=== PATIENT | male | born 1945 | race Caucasian/White ===

== ENCOUNTER 2017-03-04 10:26 | Emergency (ER) | payer MEDICARE ==
[~2017-03-04] VITALS: Ht 154.9 cm; Wt 65.0 kg
[~2017-03-04 10:26] MED LIST: ASA LO-DOSE81 MG OR; C 250 PO; CEPHALEXIN500 M1 OR; CLARITIN10 MG OR; DAILY MULTI OR; DAILY MULTIPLE VITA1 PO; EQ ASPIRIN81 M1 OR; ESCITALOPRAM OX10 MG PO; FISH OIL1000 MG PO; LISINOPRIL5 MG PO; NAPROSYN500 MG OR; NEXIUM40 M1 PO; OMEGA PO; PLAVIX75 MG OR; PRAVASTATIN20 MG PO; PROAIR HFA IN; VITAMIN C100 MG OR; [UNRECOGNIZED DRUG - REMARK]
[2017-03-04] MEDS ORDERED: PERCOCET 5/325M1 TAB PO (12:16)
[2017-03-04 12:57] VITALS: BP 137/82
== END 2017-03-04 12:57 | disposition home or self-care (01) ==
LOC: ED 10:26
PROC: 2W3DX1Z Immobilization of Left Lower Arm using Splint (ICD-10-PCS; principal; 2017-03-04)
DX: S62.316A Displaced fracture of base of fifth metacarpal bone, right hand, initial encounter for closed fracture (principal); R22.31 Localized swelling, mass and lump, right upper limb; W01.0XXA Fall on same level from slipping, tripping and stumbling without subsequent striking against object, initial encounter; Y93.01 Activity, walking, marching and hiking; Y92.009 Unspecified place in unspecified non-institutional (private) residence as the place of occurrence of the external cause

== ENCOUNTER 2018-08-13 08:29 | Inpatient (IN) | payer MEDICARE ==
[~2018-08-13] VITALS: Ht 154.9 cm; Wt 76.7 kg
[2018-08-13] VITALS (58 sets, daily range): BP systolic 83–152; BP diastolic 52–85
[~2018-08-13 08:29] MED LIST changes: +PERCOCET 5/325M1 TAB PO
[2018-08-13 10:13] LABS: HEMATOCRIT 46.5 % (39.0-50.0); HEMOGLOBIN 15.2 g/dl (14.0-18.0); IMMATURE GRANULOCYTES 0.6 % (0.0-5.0); MEAN CELL VOLUME 91.7 fL CALC (80.0-100.0); MEAN CORPUSCULAR HGB CONC 32.7 g/L CALC (32.0-36.0); NEUT# 7.39 thou/uL (1.82-7.42); RED BLOOD COUNT 5.07 mill/uL (4.70-6.10); RED CELL DISTRI WIDTH 12.4 % (11.5-15.5)
[2018-08-13 10:34] LABS: ALBUMIN 4.2 g/dL (3.2-5.0); BILIRUBIN, TOTAL 0.6 mg/dL (0.0-1.4); CREATININE 1.7 mg/dL (0.7-1.3); POTASSIUM 4.4 mmol/l (3.5-5.1); TOTAL PROTEIN 6.6 g/dL (6.3-8.2)
[2018-08-13 18:28] LABS: ANION GAP 13 (6-22 (CALC)); BUN 24 mg/dL (8-23); BUN/CREATININE RATIO 23 (12-20 (CALC)); CARBON DIOXIDE 19 mmol/l (22-30); CHLORIDE 112 mmol/l (95-108); CREATININE 1.1 mg/dL (0.7-1.3); GFR > 60 ML/MIN (>=60 (CALC)); GFR FOR AFR.AMER. > 60 ML/MIN (>=60 (CALC)); POTASSIUM 4.1 mmol/l (3.5-5.1); SODIUM 139 mmol/l (137-146)
[2018-08-13 18:47] LABS: HEMATOCRIT 41.8 % (39.0-50.0); HEMOGLOBIN 13.6 g/dl (14.0-18.0); IMMATURE GRANULOCYTES 0.4 % (0.0-5.0); MEAN CELL VOLUME 94.4 fL CALC (80.0-100.0); MEAN CORPUSCULAR HGB 30.7 pG CALC (26.0-32.0); MEAN CORPUSCULAR HGB CONC 32.5 g/L CALC (32.0-36.0); NEUT# 7.51 thou/uL (1.82-7.42); RED BLOOD COUNT 4.43 mill/uL (4.70-6.10); RED CELL DISTRI WIDTH 12.6 % (11.5-15.5)
[2018-08-14] VITALS (36 sets, daily range): BP systolic 85–112; BP diastolic 45–82
[2018-08-14] MEDS ORDERED: INDERAL 20MG TA20 MG PO (12:43)
[2018-08-14] MEDS ORDERED: PRAVASTATIN20 MG PO (12:44)
[2018-08-14] MEDS ORDERED: ESCITALOPRAM OX10 MG PO (12:44)
[2018-08-14] MEDS ORDERED: PRILOSEC20 MG/CAP PO (12:45)
[2018-08-14] MEDS ORDERED: LISINOPRIL5 MG PO (12:46)
[2018-08-14] MEDS ORDERED: ASPIRIN 8181 MG PO (15:44)
[2018-08-14] MEDS ORDERED: VENTOLIN HFA IN (15:45)
[2018-08-14] MEDS ORDERED: BUPROPION HCL150 M1 PO (15:46)
[2018-08-15] VITALS (38 sets, daily range): BP systolic 90–128; BP diastolic 52–71
[2018-08-15 05:02] LABS: HEMATOCRIT 36.5 % (39.0-50.0); HEMOGLOBIN 12.2 g/dl (14.0-18.0); IMMATURE GRANULOCYTES 0.5 % (0.0-5.0); MEAN CORPUSCULAR HGB 30.4 pG CALC (26.0-32.0); MEAN CORPUSCULAR HGB CONC 33.4 g/L CALC (32.0-36.0); NEUT# 8.04 thou/uL (1.82-7.42); RED BLOOD COUNT 4.01 mill/uL (4.70-6.10); RED CELL DISTRI WIDTH 13.1 % (11.5-15.5)
[2018-08-15 05:27] LABS: ALKALINE PHOSPHATASE 40 u/l (38-126); AMYLASE 50 u/l (30-110); ANION GAP 9 (6-22 (CALC)); BILIRUBIN, TOTAL 0.3 mg/dL (0.0-1.4); BUN 21 mg/dL (8-23); BUN/CREATININE RATIO 24 (12-20 (CALC)); CARBON DIOXIDE 20 mmol/l (22-30); CHLORIDE 114 mmol/l (95-108); CREATININE 0.9 mg/dL (0.7-1.3); GFR > 60 ML/MIN (>=60 (CALC)); GFR FOR AFR.AMER. > 60 ML/MIN (>=60 (CALC)); LIPASE 113 u/l (23-300); POTASSIUM 3.5 mmol/l (3.5-5.1); SGOT/AST 11 u/l (19-48); SODIUM 139 mmol/l (137-146)
[2018-08-15 05:29] LABS: ALBUMIN 2.5 g/dL (3.2-5.0); TOTAL PROTEIN 4.5 g/dL (6.3-8.2)
[2018-08-15] MEDS ORDERED: FISH,FLAX,BORAGE OIL (16:02)
[2018-08-16] VITALS (59 sets, daily range): BP systolic 79–144; BP diastolic 47–71
[2018-08-16 05:56] LABS: HEMATOCRIT 37.2 % (39.0-50.0); HEMOGLOBIN 12.2 g/dl (14.0-18.0); IMMATURE GRANULOCYTES 1.2 % (0.0-5.0); MEAN CELL VOLUME 91.9 fL CALC (80.0-100.0); MEAN CORPUSCULAR HGB 30.1 pG CALC (26.0-32.0); MEAN CORPUSCULAR HGB CONC 32.8 g/L CALC (32.0-36.0); NEUT# 9.44 thou/uL (1.82-7.42); RED BLOOD COUNT 4.05 mill/uL (4.70-6.10); RED CELL DISTRI WIDTH 13.2 % (11.5-15.5)
[2018-08-16 06:14] LABS: ALBUMIN 2.6 g/dL (3.2-5.0); ALKALINE PHOSPHATASE 49 u/l (38-126); ANION GAP 10 (6-22 (CALC)); BILIRUBIN, TOTAL 0.2 mg/dL (0.0-1.4); BUN 24 mg/dL (8-23); BUN/CREATININE RATIO 24 (12-20 (CALC)); CARBON DIOXIDE 20 mmol/l (22-30); CHLORIDE 112 mmol/l (95-108); GFR > 60 ML/MIN (>=60 (CALC)); GFR FOR AFR.AMER. > 60 ML/MIN (>=60 (CALC)); MAGNESIUM 2.1 mg/dL (1.6-2.3); POTASSIUM 3.3 mmol/l (3.5-5.1); SGOT/AST 10 u/l (19-48); SODIUM 139 mmol/l (137-146); TOTAL PROTEIN 4.6 g/dL (6.3-8.2)
[2018-08-17] VITALS (55 sets, daily range): BP systolic 87–186; BP diastolic 50–104
[2018-08-17 05:22] LABS: HEMATOCRIT 37.2 % (39.0-50.0); HEMOGLOBIN 12.3 g/dl (14.0-18.0); IMMATURE GRANULOCYTES 1.7 % (0.0-5.0); MEAN CELL VOLUME 92.1 fL CALC (80.0-100.0); MEAN CORPUSCULAR HGB 30.4 pG CALC (26.0-32.0); MEAN CORPUSCULAR HGB CONC 33.1 g/L CALC (32.0-36.0); NEUT# 10.14 thou/uL (1.82-7.42); RED BLOOD COUNT 4.04 mill/uL (4.70-6.10); RED CELL DISTRI WIDTH 13.3 % (11.5-15.5)
[2018-08-17 05:39] LABS: ALBUMIN 2.7 g/dL (3.2-5.0); ALKALINE PHOSPHATASE 44 u/l (38-126); BUN 28 mg/dL (8-23); BUN/CREATININE RATIO 27 (12-20 (CALC)); CARBON DIOXIDE 22 mmol/l (22-30); CHLORIDE 111 mmol/l (95-108); GFR > 60 ML/MIN (>=60 (CALC)); GFR FOR AFR.AMER. > 60 ML/MIN (>=60 (CALC)); MAGNESIUM 2.3 mg/dL (1.6-2.3); SODIUM 139 mmol/l (137-146); TOTAL PROTEIN 4.6 g/dL (6.3-8.2)
[2018-08-17 05:44] LABS: ANION GAP 10 (6-22 (CALC)); BILIRUBIN, TOTAL 0.3 mg/dL (0.0-1.4)
[2018-08-17 05:45] LABS: POTASSIUM 4.1 mmol/l (3.5-5.1); SGOT/AST 19 u/l (19-48)
[2018-08-18] VITALS (15 sets, daily range): BP systolic 94–164; BP diastolic 56–98
[2018-08-18 05:25] LABS: HEMATOCRIT 40.9 % (39.0-50.0); HEMOGLOBIN 13.6 g/dl (14.0-18.0); IMMATURE GRANULOCYTES 1.8 % (0.0-5.0); MEAN CELL VOLUME 91.1 fL CALC (80.0-100.0); MEAN CORPUSCULAR HGB 30.3 pG CALC (26.0-32.0); MEAN CORPUSCULAR HGB CONC 33.3 g/L CALC (32.0-36.0); NEUT# 11.59 thou/uL (1.82-7.42); RED BLOOD COUNT 4.49 mill/uL (4.70-6.10); RED CELL DISTRI WIDTH 13.5 % (11.5-15.5)
[2018-08-18 05:47] LABS: ALBUMIN 2.8 g/dL (3.2-5.0); ALKALINE PHOSPHATASE 49 u/l (38-126); ANION GAP 10 (6-22 (CALC)); BILIRUBIN, TOTAL 0.4 mg/dL (0.0-1.4); BUN 36 mg/dL (8-23); BUN/CREATININE RATIO 35 (12-20 (CALC)); CARBON DIOXIDE 24 mmol/l (22-30); CHLORIDE 111 mmol/l (95-108); GFR > 60 ML/MIN (>=60 (CALC)); GFR FOR AFR.AMER. > 60 ML/MIN (>=60 (CALC)); MAGNESIUM 2.7 mg/dL (1.6-2.3); POTASSIUM 4.1 mmol/l (3.5-5.1); SODIUM 142 mmol/l (137-146)
[2018-08-18 05:54] LABS: SGOT/AST 43 u/l (19-48)
[2018-08-19] VITALS (12 sets, daily range): BP systolic 112–169; BP diastolic 59–88
[2018-08-19 05:04] LABS: HEMATOCRIT 35.5 % (39.0-50.0); HEMOGLOBIN 11.7 g/dl (14.0-18.0); MEAN CELL VOLUME 92.9 fL CALC (80.0-100.0); MEAN CORPUSCULAR HGB 30.6 pG CALC (26.0-32.0); NEUT# 8.8 thou/uL (1.82-7.42); RED BLOOD COUNT 3.82 mill/uL (4.70-6.10); RED CELL DISTRI WIDTH 13.4 % (11.5-15.5)
[2018-08-19 06:34] LABS: ALBUMIN 2.6 g/dL (3.2-5.0); ALKALINE PHOSPHATASE 42 u/l (38-126); ANION GAP 8 (6-22 (CALC)); BILIRUBIN, TOTAL 0.5 mg/dL (0.0-1.4); BUN 41 mg/dL (8-23); BUN/CREATININE RATIO 41 (12-20 (CALC)); CARBON DIOXIDE 26 mmol/l (22-30); CHLORIDE 112 mmol/l (95-108); GFR > 60 ML/MIN (>=60 (CALC)); GFR FOR AFR.AMER. > 60 ML/MIN (>=60 (CALC)); MAGNESIUM 2.8 mg/dL (1.6-2.3); POTASSIUM 4.1 mmol/l (3.5-5.1); SGOT/AST 61 u/l (19-48); SODIUM 142 mmol/l (137-146); TOTAL PROTEIN 4.6 g/dL (6.3-8.2)
[2018-08-20] VITALS (11 sets, daily range): BP systolic 121–160; BP diastolic 62–85
[2018-08-20 05:06] LABS: HEMATOCRIT 36.7 % (39.0-50.0); HEMOGLOBIN 11.9 g/dl (14.0-18.0); IMMATURE GRANULOCYTES 2.4 % (0.0-5.0); MEAN CELL VOLUME 92.4 fL CALC (80.0-100.0); MEAN CORPUSCULAR HGB CONC 32.4 g/L CALC (32.0-36.0); NEUT# 8.36 thou/uL (1.82-7.42); RED BLOOD COUNT 3.97 mill/uL (4.70-6.10); RED CELL DISTRI WIDTH 13.1 % (11.5-15.5)
[2018-08-20 06:13] LABS: ALBUMIN 2.9 g/dL (3.2-5.0); ALKALINE PHOSPHATASE 39 u/l (38-126); ANION GAP 10 (6-22 (CALC)); BILIRUBIN, TOTAL 0.7 mg/dL (0.0-1.4); BUN 41 mg/dL (8-23); BUN/CREATININE RATIO 43 (12-20 (CALC)); CARBON DIOXIDE 28 mmol/l (22-30); CHLORIDE 111 mmol/l (95-108); CREATININE 0.9 mg/dL (0.7-1.3); GFR > 60 ML/MIN (>=60 (CALC)); GFR FOR AFR.AMER. > 60 ML/MIN (>=60 (CALC)); MAGNESIUM 2.7 mg/dL (1.6-2.3); POTASSIUM 4.3 mmol/l (3.5-5.1); SGOT/AST 64 u/l (19-48); SODIUM 144 mmol/l (137-146)
[2018-08-21 04:15] VITALS: BP 132/76
[2018-08-21 05:25] LABS: HEMATOCRIT 35.9 % (39.0-50.0); HEMOGLOBIN 11.8 g/dl (14.0-18.0); IMMATURE GRANULOCYTES 2.3 % (0.0-5.0); MEAN CELL VOLUME 93.2 fL CALC (80.0-100.0); MEAN CORPUSCULAR HGB 30.6 pG CALC (26.0-32.0); MEAN CORPUSCULAR HGB CONC 32.9 g/L CALC (32.0-36.0); NEUT# 8.57 thou/uL (1.82-7.42); RED BLOOD COUNT 3.85 mill/uL (4.70-6.10)
[2018-08-21 05:46] LABS: ALBUMIN 2.7 g/dL (3.2-5.0); ALKALINE PHOSPHATASE 39 u/l (38-126); ANION GAP 9 (6-22 (CALC)); BILIRUBIN, TOTAL 0.7 mg/dL (0.0-1.4); BUN 38 mg/dL (8-23); BUN/CREATININE RATIO 45 (12-20 (CALC)); CARBON DIOXIDE 29 mmol/l (22-30); CHLORIDE 110 mmol/l (95-108); CREATININE 0.9 mg/dL (0.7-1.3); GFR > 60 ML/MIN (>=60 (CALC)); GFR FOR AFR.AMER. > 60 ML/MIN (>=60 (CALC)); MAGNESIUM 2.5 mg/dL (1.6-2.3); POTASSIUM 4.2 mmol/l (3.5-5.1); SGOT/AST 36 u/l (19-48); SODIUM 144 mmol/l (137-146); TOTAL PROTEIN 4.8 g/dL (6.3-8.2)
[2018-08-21 07:40] VITALS: BP 152/72
[2018-08-21 15:50] VITALS: BP 124/68
[2018-08-21 19:00] VITALS: BP 127/69
[2018-08-21 21:47] LABS: URINE BILIRUBIN - DIPSTICK NEGATIVE (NEGATIVE); URINE BLOOD DIPSTICK LARGE (NEGATIVE); URINE COLOR YELLOW; URINE GLUCOSE - DIPSTICK NEGATIVE (NEGATIVE); URINE KETONE NEGATIVE (NEGATIVE); URINE LEUK ESTERASE NEGATIVE (Negative); URINE NITRITE - DIPSTICK NEGATIVE (Negative); URINE PH 5.5 (4.5-8.0); URINE PROTEIN - DIPSTICK TRACE mg/dL (NEG-TRACE); URINE SPECIFIC GRAVITY >=1.030; URINE UROBILINOGEN - DIPSTICK 0.2 E.U./dL (0.2)
[2018-08-21 21:49] LABS: URINE CLARITY SL CLOUDY
[2018-08-21 21:53] LABS: URINE RBC 50-100 RBC/hpf (0-5)
[2018-08-21 21:54] LABS: URINE WBC 0-2 WBC/hpf (0-5)
[2018-08-21 23:50] VITALS: BP 122/69
[2018-08-22 04:08] VITALS: BP 134/63
[2018-08-22 07:30] VITALS: BP 140/70
[2018-08-22 11:10] VITALS: BP 115/61
[2018-08-22 15:05] VITALS: BP 119/70
[2018-08-22 19:00] VITALS: BP 127/78
[2018-08-23] VITALS: BP 136/80
[2018-08-23 04:15] VITALS: BP 114/68
[2018-08-23 08:48] VITALS: BP 114/61
[2018-08-23 10:58] VITALS: BP 111/70
[2018-08-23] MEDS ORDERED: IPRATROPIU0.5 MG/3 M IN (14:10)
[2018-08-23] MEDS ORDERED: APRESOLINE25 MG/TAB PO (14:10)
[2018-08-23] MEDS ORDERED: AMLODIPINE BESYL5 MG PO (14:11)
[2018-08-23] MEDS ORDERED: LEVAQUIN500 MG PO (14:12)
[2018-08-23 15:51] VITALS: BP 91/52
[2018-08-23 19:32] VITALS: BP 95/54
== END 2018-08-23 19:46 | DRG 915 ==
LOC: ED 08:29 → ED-I 11:32 → ED 11:50 → ICU 11:51 → MS2 08-20 13:09
PROVIDERS: Emergency Medicine; Internal Medicine Nephrology; ADMIT Internal Medicine; ATTEND Internal Medicine
PROC: 0BH17EZ Insertion of Endotracheal Airway into Trachea, Via Natural or Artificial Opening (ICD-10-PCS; principal; 2018-08-13)
PROC: 5A1955Z Respiratory Ventilation, Greater than 96 Consecutive Hours (ICD-10-PCS; 2018-08-13)
PROC: 0T9B70Z Drainage of Bladder with Drainage Device, Via Natural or Artificial Opening (ICD-10-PCS; 2018-08-13)
PROC: 02HV33Z Insertion of Infusion Device into Superior Vena Cava, Percutaneous Approach (ICD-10-PCS; 2018-08-14)
DX: T78.3XXA Angioneurotic edema, initial encounter (principal); G92 Toxic encephalopathy; J96.01 Acute respiratory failure with hypoxia; J69.0 Pneumonitis due to inhalation of food and vomit; N17.9 Acute kidney failure, unspecified; E46 Unspecified protein-calorie malnutrition; T46.4X5A Adverse effect of angiotensin-converting-enzyme inhibitors, initial encounter; J44.9 Chronic obstructive pulmonary disease, unspecified; I25.10 Atherosclerotic heart disease of native coronary artery without angina pectoris; I10 Essential (primary) hypertension; I95.9 Hypotension, unspecified; E78.5 Hyperlipidemia, unspecified; R73.9 Hyperglycemia, unspecified; F32.9 Major depressive disorder, single episode, unspecified; F41.9 Anxiety disorder, unspecified; Z95.5 Presence of coronary angioplasty implant and graft; Z68.20 Body mass index [BMI] 20.0-20.9, adult; Z78.1 Physical restraint status; T38.0X5A Adverse effect of glucocorticoids and synthetic analogues, initial encounter

== ENCOUNTER 2018-10-08 16:20 | Inpatient (IN) | payer MEDICARE ==
[~2018-10-08] VITALS: Ht 154.9 cm; Wt 62.2 kg
[~2018-10-08 16:20] MED LIST changes: +AMLODIPINE BESYL5 MG PO; +APRESOLINE25 MG/TAB PO; +ASPIRIN 8181 MG PO; +BUPROPION HCL150 M1 PO; +FISH,FLAX,BORAGE OIL; +INDERAL 20MG TA20 MG PO; +IPRATROPIU0.5 MG/3 M IN; +LEVAQUIN500 MG PO; +PRILOSEC20 MG/CAP PO; +VENTOLIN HFA IN
--- NOTE | 2018-10-08 16:20 | NUR ---
PT TO ROOM VIA EMS STRETCHER.
--- NOTE | 2018-10-08 16:35 | NUR ---
AT BEDSIDE AND REPORTS INCREASING CONFUSION AND TREAMORS. PER PT WAS INTUBATED FOR ANGIO EDEMA APPROX 2 MONTHS PRIOR AND WHEN HE WAS EXTUBATED HE WAS CONFUSED AND HAVING LEFT LOWER EXTREMITY WEAKNESS. HE HAS BEEN SEEING A PHYSICAL THERAPIST SINCE DISCHARGE FROM REHAB ON 09/15.
[2018-10-08 16:59] LABS: HEMATOCRIT 33.6 % (39.0-50.0); HEMOGLOBIN 10.9 g/dl (14.0-18.0); IMMATURE GRANULOCYTES 1.3 % (0.0-5.0); MEAN CELL VOLUME 94.1 fL CALC (80.0-100.0); MEAN CORPUSCULAR HGB 30.5 pG CALC (26.0-32.0); MEAN CORPUSCULAR HGB CONC 32.4 g/L CALC (32.0-36.0); NEUT# 3.82 thou/uL (1.82-7.42); RED BLOOD COUNT 3.57 mill/uL (4.70-6.10)
[2018-10-08 17:10] LABS: ANION GAP 10 (6-22 (CALC)); BUN 25 mg/dL (8-23); BUN/CREATININE RATIO 24 (12-20 (CALC)); CARBON DIOXIDE 30 mmol/l (22-30); CHLORIDE 105 mmol/l (95-108); GFR > 60 ML/MIN (>=60 (CALC)); GFR FOR AFR.AMER. > 60 ML/MIN (>=60 (CALC)); SGOT/AST 16 u/l (19-48); SODIUM 141 mmol/l (137-146); TOTAL PROTEIN 5.4 g/dL (6.3-8.2)
[2018-10-08 17:13] LABS: ALBUMIN 3.3 g/dL (3.2-5.0); ALKALINE PHOSPHATASE 60 u/l (38-126); BILIRUBIN, TOTAL 0.3 mg/dL (0.0-1.4)
--- NOTE | 2018-10-08 17:25 | NUR ---
PATIENT RESTING ON STRETCHER WITH EYES CLOSED, RESPONDS TO VERBAL AND TACTILE STIMULI. NOTED TO BE DROWSY ORIENTED TO SELF AND PLACE, GARBLED SPEECH NOTED. REPORTS PATIENT LAST KNOWN WELL 10/06/18 AT 1800.
[2018-10-08] MEDS ORDERED: PRIMIDONE50 MG PO (17:30)
[2018-10-08] MEDS ORDERED: OMEPRAZOLE10 MG PO (17:32)
[2018-10-08] MEDS ORDERED: FUROSEMIDE20 MG PO (17:33)
[2018-10-08] MEDS ORDERED: TAMSULOSIN HCL0.4 MG PO (17:33)
[2018-10-08] MEDS ORDERED: POT CHLORIDE10 ME5 PO (17:34)
[2018-10-08] MEDS ORDERED: AMLODIPINE5 MG PO (17:35)
--- NOTE | 2018-10-08 17:38 | NUR ---
MEDICATIONS REVIEWED WITH PATIENT'S . HOME MEDS BROUGHT IN FROM HOME.
--- NOTE | 2018-10-08 18:05 | NUR ---
PATIENT RETURNS FROM CT IN STABLE CONDITION. CONTINUES TO BE DROWSY.
--- NOTE | 2018-10-08 18:35 | NUR ---
AT BEDSIDE TO DISCUSS RESULTS AND PLAN OF CARE.
--- NOTE | 2018-10-08 19:00 | NUR ---
REPORT GIVEN TO MIRANDA HANSON.
--- NOTE | 2018-10-08 19:17 | NUR ---
ATTEMPT MADE TO CALL REPORT, SPOKE TO MIRANDA CASTELAN. WILL HAVE NURSE CALL BACK FOR REPORT.
--- NOTE | 2018-10-08 19:22 | NUR ---
REPORT CALLED TO DANA ORDONEZ RN. INFORMED OF URINE SAMPLE COLLECTION PENDING. VERBAL UNDERSTANDING.
--- NOTE | 2018-10-08 19:25 | NUR ---
TO FLOOR WITH O2/POCKET MONITOR. PHONE GIVEN TO . SLIPPERS AND SHIRT IN MARKED BAG TO FLOOR WITH PT. PT TRANSFERRED TO BED WITH FLOOR STAFF.
[2018-10-08 19:35] VITALS: BP 131/72
--- NOTE | 2018-10-08 19:50 | NUR ---
RECEIVED REPORT FROM ER NURSE RAUL, PATIENT ON 02 AT 2LPM, TRANSPORTED VIA BED, ACCOMPANIED BY , PATIENT LETHARGIC, BUT WAS ABLE TO ANSWER NAME AND LOCATION, ORIENTED TO ROOM AND CALL LIGHT SYSTEM.
[2018-10-09] VITALS (9 sets, daily range): BP systolic 88–125; BP diastolic 47–72
--- NOTE | 2018-10-09 01:00 | NUR ---
PATIENT APPEARS TO BE SLEEPING WITH EYES CLOSED EVEN UNLABORED BREATHING CALL LIGHT AT REACH.
[2018-10-09 01:32] LABS: URINE BILIRUBIN - DIPSTICK NEGATIVE (NEGATIVE); URINE BLOOD DIPSTICK NEGATIVE (NEGATIVE); URINE COLOR YELLOW; URINE GLUCOSE - DIPSTICK NEGATIVE (NEGATIVE); URINE KETONE NEGATIVE (NEGATIVE); URINE LEUK ESTERASE NEGATIVE (NEGATIVE); URINE NITRITE - DIPSTICK NEGATIVE (Negative); URINE PROTEIN - DIPSTICK NEGATIVE (NEG-TRACE); URINE UROBILINOGEN - DIPSTICK 0.2 E.U./dL (0.2)
--- NOTE | 2018-10-09 06:43 | NUR ---
PATIENT ALERT AND ORIENTED TO NAME AND PLACE ONLY, ABLE TO MAKE NEEDS KNOWN, DENIES PAIN OR DISCOMFORTS AT THIS TIME, PATIENT TRYING TO VOID, UNABLE TO PEE AT THIS TIME, BLADDER SCAN DONE 282 ML, PATIENT REQUESTED COFFEE STATING IT HELPS HIM VOID.
--- NOTE | 2018-10-09 07:20 | NUR ---
RECEIVED REPORT FROM MIRANDA IQBAL. PT SITTING IN RECLINER CHAIR AT BEDSIDE.
--- NOTE | 2018-10-09 07:30 | NUR ---
Assessment complete at this time. Pt alert and oriented x3, discussing is anniversary this past sat. Denies any needs or complaints. See shift review for complete assessment. Discussed plan of care. New IV started in L hand. tolerated well.
--- NOTE | 2018-10-09 08:48 | NUR ---
pt medicated with scheduled meds. denies any needs.
--- NOTE | 2018-10-09 10:10 | NUR ---
PT UP TO VOID AT SIDE OF BED, EXTREMELY UNSTEADY GAIT/BALANCE. DR LERMA NOTIFIED, RECEIVED ORDER FOR PHYSIAL THERAPY CONSULT.
--- NOTE | 2018-10-09 11:47 | NUR ---
DR LERMA IN TO SEE PT. NEW ORDERS RECEIVED.
--- NOTE | 2018-10-09 11:50 | NUR ---
pt at bedside. pt had large bm, small void.
--- NOTE | 2018-10-09 12:25 | NUR ---
pt up to bsc, another large BM. Pt gait very unsteady, pushes back when standing in upright position.
--- NOTE | 2018-10-09 13:42 | NUR ---
PT INTERMITTENTLY CONFUSED, STATING HE IS DREAMING, AT TIMES BELIEVES HE IS AT HOME. HAS VOIDED IN HIS WATER PITCHER. PT ATTEMPTING TO GET OUT OF CHAIR ON HIS OWN. GAIT VERY UNSTEADY.
--- NOTE | 2018-10-09 14:30 | NUR ---
ORTHOSTATIC B/P'S TAKEN. L-76 89/49 SIT- 84 90/47 STA- 81 88/58. AWARE.
--- NOTE | 2018-10-09 15:23 | NUR ---
PT RESTING IN BED WITH EYES CLOSED INTERMITTENTLY. DENIES ANY NEEDS.
--- NOTE | 2018-10-09 16:59 | NUR ---
PT RESTLESS. CALLED TO CHECK ON PT, PT TOLD HE WAS BEING DISCHARGED TODAY. PT ORIENTED TO PERSON. NO SIGNS OF DISTRESS.
--- NOTE | 2018-10-09 17:57 | NUR ---
PT SITTING IN HIGH FOWLERS EATING DINNER. NO SIGNS OF DISTRESS AT THIS TIME.
--- NOTE | 2018-10-09 19:00 | NUR ---
RECEIVED REPORT FROM NURSE CAROL PATIENT SITTING IN RECLINER DENIES PAIN OR DISCOMFORTS AT THIS TIME, CALL LIGHT AT REACH
--- NOTE | 2018-10-09 21:30 | NUR ---
PATIENT ALERT AND ORIENTED WITH CONFUSIONS NOTED, ABLE TO MAKE NEEDS KNOWN, DENIES PAIN OR DISCOMFORTS AT THIS TIME, WITH SALINE LOCK ON LEFT HAND PATENT AND FLUSHES WELL, ON TELE SR 81, REMAINS ON O2 AT 2LPM VIA NC, WITH EVEN UNLABORED BREATHING, ON CONTACT ISOLATION FOR HX OF MRSA PENDING CULTURE AT THIS TIME, PATIENT ASSISTED BACK IN BED, BED ALARM IN PLACE.
[2018-10-10 00:08] VITALS: BP 99/51
--- NOTE | 2018-10-10 00:34 | NUR ---
PATIENT UNSTEADY GAIT, ASSISTED TO STAND USED URINAL TO VOID, AND ASSISTED BACK IN BED, CALL LIGHT AT REACH.
[2018-10-10 04:46] VITALS: BP 120/58
--- NOTE | 2018-10-10 05:16 | NUR ---
PATIENT CURRENTLY RESTING IN BED EYES CLOSED, WITH EVEN UNLABORED BREATHING CALL LIGHT AT REACH.
[2018-10-10 05:32] LABS: HEMATOCRIT 33.4 % (39.0-50.0); HEMOGLOBIN 11.2 g/dl (14.0-18.0); IMMATURE GRANULOCYTES 0.9 % (0.0-5.0); MEAN CELL VOLUME 94.4 fL CALC (80.0-100.0); MEAN CORPUSCULAR HGB 31.6 pG CALC (26.0-32.0); MEAN CORPUSCULAR HGB CONC 33.5 g/L CALC (32.0-36.0); NEUT# 4.81 thou/uL (1.82-7.42); RED BLOOD COUNT 3.54 mill/uL (4.70-6.10)
[2018-10-10 05:55] LABS: ALBUMIN 3.1 g/dL (3.2-5.0); ALKALINE PHOSPHATASE 58 u/l (38-126); ANION GAP 8 (6-22 (CALC)); BILIRUBIN, TOTAL 0.4 mg/dL (0.0-1.4); BUN 18 mg/dL (8-23); BUN/CREATININE RATIO 21 (12-20 (CALC)); CARBON DIOXIDE 29 mmol/l (22-30); CHLORIDE 106 mmol/l (95-108); CREATININE 0.9 mg/dL (0.7-1.3); GFR > 60 ML/MIN (>=60 (CALC)); GFR FOR AFR.AMER. > 60 ML/MIN (>=60 (CALC)); MAGNESIUM 2.1 mg/dL (1.6-2.3); POTASSIUM 3.6 mmol/l (3.5-5.1); SGOT/AST 14 u/l (19-48); SODIUM 139 mmol/l (137-146); TOTAL PROTEIN 4.9 g/dL (6.3-8.2)
--- NOTE | 2018-10-10 07:00 | NUR ---
SHIFT CHANGE REPORT, PT AWAKE AND ALERT RESTING IN BED, NO C/O DISCOMFORT, DOES NOT RESPOND TO VERBAL QUESTIONS, TELE MONITOR IN PLACE, BED IN LOWEST POSITION WITH ALARM ON, CALL JARAMILLO IN REACH.
[2018-10-10 09:29] VITALS: BP 110/61
[2018-10-10 11:10] VITALS: BP 115/61
--- NOTE | 2018-10-10 11:18 | NUR ---
CONFUSED AT THIS AND ATTEMPTING TO CLIMB OOB, OFFERED TOILETTING BUT REFUSED, ALL OTHER NEEDS ADDRESSED, BED ALARM ON.
--- NOTE | 2018-10-10 14:08 | NUR ---
PATIENT SEEN FOR 30 MIN. FOR NEUROMUSCULAR AND ADL. THE NURSING AID STATES THAT THE PATIENT'S BALANCE WAS BETTER THIS AM AND HE DID NOT PUSH RETROGRADE. THIS PM SITTING BALANCE AND STANDING BALANCE WERE SEVERELY RETROGRADE. HE REQUIRED MAX ASSIST TO SIT AND TO STAND. STANDING AND SIT BALANCE EX WERE DONE. THE PATIENT COULD FOLLOW INSTRUCTIONS WELL, HOWEVER HIS SPEECH WAS RAMBLING AND NOT ON TOPIC. HE RESPONDED THE BEST WITH GOAL ORIENTED EX SUCH LEANING FORWARD IN SITTING PAST MIDLINE TO TOUCH THE THERAPIST'S HAND WITH HIS NOSE. TOWARD THE END OF THE EX PERIOD HE C/O HIS BACK WAS ACHING AND HE WAS RETURNED TO THE BED AND MADE COMFORTABLE. WITH GENTLE GUIDING HE WAS ABLE TO PULL HIMSELF UP IN THE BED WITH MIN ASSIST. THE BED ALARM WAS ACTIVATED AND THE PATIENT WAS ORIENTED TO HIS CALL LIGHT. AM-PAC SCORE THIS PM IS 12 SUGGESTING SNF PLACEMENT.
[2018-10-10 14:35] VITALS: BP 114/63
--- NOTE | 2018-10-10 16:28 | NUR ---
RESTING IN BED NOW BUT HAS TO BE CONSTANTLY REMINDED NOT TO GET OOB HE KEEPS SETTING OF THE ALARM, CLOSE TO NURSES STATION AND CONSTANT MONITORING.
[2018-10-10 18:57] VITALS: BP 105/60
--- NOTE | 2018-10-10 21:56 | NUR ---
PT ATTEMPTING TO GET OUT OF BED, CONFUSED. MEDICATED WITH SONATA AT THIS TIME. CALL LIGHT IN REACH,BED ALARM FOR SAFETY. CONTINUE TO MONITOR.
[2018-10-11] VITALS: BP 123/70
--- NOTE | 2018-10-11 00:24 | NUR ---
PT AWAKE, ASKING,"WHERE AM I SUPPOSED TO BE AT?" REORIENTED PT TO SURROUNDINGS. BED ALARM FOR SAFETY, CALL LIGHT IN REACH,CONTINUE TO MONITOR.
[2018-10-11 04:36] VITALS: BP 127/60
--- NOTE | 2018-10-11 07:00 | NUR ---
SHIFT CHANGE REPORT, PT ANXIOUS, CONFUSED AND GITTERY, DENIES PAIN/DISCOMFORT, TELE MONITOR IN PLACE, PT REMOVED O2 CANULA EACH TIME ITS REPLACED, NEEDS ANTICIPATED AND ADDRESSED, BED ALARM IN PLACE, CALL JARAMILLO IN REACH.
[2018-10-11 07:54] VITALS: BP 117/62
[2018-10-11 12:00] VITALS: BP 114/78
--- NOTE | 2018-10-11 12:03 | NUR ---
Pt seen this am for treatment, nursing reported pt moving around a lot and watching pt from mac. He was in bed supine, min/mod for supine to sit and sit to stand. Pt retropulsive. Gait with RW x 60 with min assist, he had poor safety skills and control of walker. Gait x 80' without walker required min/mod assistance. 02 sats where in upper 90s on room air. Ther ex performed in sitting with guidance and redirecting required. Pt was confused. Pt left in chair with legs elevated, alarm in place and lunch set up done. His REGULATORY INTERN aware. [facility] 6 click remains at 12 for SNF/LTAC
--- NOTE | 2018-10-11 13:01 | NUR ---
DR MARIA GUADALUPE DOCKERYED AND STATED THIS PT NEEDS REHAB, TO CONSULT CM FOR D/C PLANS. PHYSICAL THERAPIST AMBULATED PT IN HALLWAY, HE IS NOW SITTING UP IN RECLINER, ASSISTED WAITH MEAL, BODY ALARM ON.
[2018-10-11 16:00] VITALS: BP 128/68
--- NOTE | 2018-10-11 17:40 | NUR ---
RESTLENN IN BED AT THIS TIME, POSITIONS CHANGED FROM BED TO CHAIR PERIODICALLY BUT PT STILL REMAINS RESTLESS AND ATTEMPTS TO GET OOB/OOC. STAFF MONITOR CLOSELY WITH BED/BODY ALARMS IN PLACE.
[2018-10-11 19:29] VITALS: BP 134/80
--- NOTE | 2018-10-11 20:00 | NUR ---
PT RESTING IN BED NO SIGNS OF DISTRESS NOTED, RESP EVEN AND UNLABORED. PT HAD SPILLED HIS COFFEE ON HIS GOWN AND SHEETS. ASSISTED PT TO BSC, PT HAD A SMALL BM, NEW LINENS PLACED AND ASSISTED PT TO SHOWER. NO SIGNS OF DISTRESS NOTED, RESP EVEN AND UNLABORED.PT HAS AN UNSTEADY GAIT AMBULATED WITH WALKER AND 1 PERSON ASSIST. ASSISTED BACK TO BED, ATTEMPTED TO DISCUSS POC, PT DOES NOT COMPREHEND. DOES NOT OBEY COMMANDS, ASSESSMENT COMPLETED, BED ALARM FOR SAFETY, CALL LIGHT IN REACH,CONTINUE TO MONITOR.
--- NOTE | 2018-10-12 00:06 | NUR ---
PT STATES HE HAS TO VOID, PT URINATED IN BED, ASSISTED WITH URINAL PT VOIDED 100CC, NEW LINENS AND GOWN PROVIDED. BED ALARM FOR SAFETY, CALL LIGHT IN REACH,CONTINUE TO MONITOR.
--- NOTE | 2018-10-12 04:00 | NUR ---
PT RESTING IN BED WITH EYES CLOSED, NO SIGNS OF DISTRESS NOTED, RESP EVEN AND UNLABORED. BED ALARM FOR SAFETY, CALL LIGHT IN REACH,CONTINUE TO MONITOR.
[2018-10-12 05:12] LABS: HEMATOCRIT 37.5 % (39.0-50.0); HEMOGLOBIN 12.5 g/dl (14.0-18.0); IMMATURE GRANULOCYTES 0.6 % (0.0-5.0); MEAN CELL VOLUME 91.2 fL CALC (80.0-100.0); MEAN CORPUSCULAR HGB 30.4 pG CALC (26.0-32.0); MEAN CORPUSCULAR HGB CONC 33.3 g/L CALC (32.0-36.0); NEUT# 10.83 thou/uL (1.82-7.42); RED BLOOD COUNT 4.11 mill/uL (4.70-6.10); RED CELL DISTRI WIDTH 12.7 % (11.5-15.5)
[2018-10-12 05:13] LABS: ALBUMIN 3.4 g/dL (3.2-5.0); ALKALINE PHOSPHATASE 69 u/l (38-126); ANION GAP 12 (6-22 (CALC)); BUN 15 mg/dL (8-23); BUN/CREATININE RATIO 16 (12-20 (CALC)); CARBON DIOXIDE 25 mmol/l (22-30); CHLORIDE 103 mmol/l (95-108); CREATININE 0.9 mg/dL (0.7-1.3); GFR > 60 ML/MIN (>=60 (CALC)); GFR FOR AFR.AMER. > 60 ML/MIN (>=60 (CALC)); POTASSIUM 3.8 mmol/l (3.5-5.1); SGOT/AST 16 u/l (19-48); SODIUM 137 mmol/l (137-146); TOTAL PROTEIN 5.5 g/dL (6.3-8.2)
[2018-10-12 05:14] LABS: BILIRUBIN, TOTAL 0.8 mg/dL (0.0-1.4)
[2018-10-12 05:39] VITALS: BP 126/60
--- NOTE | 2018-10-12 06:21 | NUR ---
PT RESTING IN BED, FIDGETING WITH BLANKETS AND SPEAKING TO HIMSELF. NO SIGNS OF DISTRESS NOTED, RESP EVEN AND UNLABORED. BED ALARM FOR SAFETY, CALL LIGHT IN REACH,CONTINUE TO MONITOR.
[2018-10-12 08:09] VITALS: BP 106/59
--- NOTE | 2018-10-12 08:20 | NUR ---
REPORT RECEIVED FROM DARWIN BERRY. PT SITTING IN CHAIR AT BEDSIDE. JUST COMPLETED SHOWER W/ STAFF X 2 ASSISTANCE. BED ALARM ATTACHED TO GOWN FOR SAFETY. PT CONFUSED. DROWSY. REQUIRES ENCOURAGEMENT AND DIRECTION FOR MEALS AND VOIDING. CALL LIGHT REVIEWED AND IN REACH. PLAN OF CARE DISCUSSED. PT REQUIRES REINFORCEMENT OF ALL INFORAMTION.
--- NOTE | 2018-10-12 09:28 | NUR ---
PT. AMBULATING IN HALLWAY W/ P.T. WALKER AND GAIT BELT AND ASSISTANCE NEEDED. DR. LERMA OBSERVED ACTIVITY.
--- NOTE | 2018-10-12 09:50 | NUR ---
Pt seen this am for treatment. He was in chair with eyes closed. He responded to therapist but not as alert as yesterday, closed eyes throught treatment, required increase encouragement to participate in treatment. AA/AROM to BLEs with physical and verbal cue required. Sit to and from stand with mod assist, pt very retropulsive, requiring therapist to hold pt foreward with all mobility. Pt ambulated 2x 80' with RW and mod assist of 1, he would let go of walker or move feet outside of walker. Pt with poor safety awareness. [facility] LT[facility]. Pt left in chair with alarm in place, nursing aware.
--- NOTE | 2018-10-12 11:57 | NUR ---
DR. LERMA IN TO SEE PT. PT SUPINE IN BED, SLEEPING.
--- NOTE | 2018-10-12 14:44 | NUR ---
Pt seen today to assist with ADL's. Assisted pt in coming to edge of bed from laying supine, requiring Mod A. Pt was able to transfer from edge of bed to recliner using a FWW. Pt required CGA and VC's to complete steps and turn. Pt required hand over hand assistance to take food from plate to mouth. Pt's pressent during treatment. [facility] OT score:12
[2018-10-12 15:33] VITALS: BP 113/59
[2018-10-12 19:20] VITALS: BP 112/56
--- NOTE | 2018-10-12 20:20 | NUR ---
PT RESTING IN BED WITH EYES CLOSED, NO SIGNS OF DISTRESS NOTED, RESP EVEN AND UNLABORED. DISCUSSED POC, PT ALERT TO SELF, CONFUSED. ASSESSMENT COMPLETED, BED ALARM FOR SAFETY, CALL LIGHT IN REACH,CONTINUE TO MONITOR.
--- NOTE | 2018-10-13 00:39 | NUR ---
PT RESTING IN BED WITH EYES CLOSED, FIDGETING WITH BLANKET, NO SIGNS OF DISTRESS NOTED, RESP EVEN AND UNLABORED. BED ALARM FOR SAFETY, CALL LIGHT IN REACH,CONTINUE TO MONITOR.
--- NOTE | 2018-10-13 03:28 | NUR ---
PT RESTING IN BED WITH EYES CLOSED, NO SIGNS OF DISTRESS NOTED, RESP EVEN AND UNLABORED. CALL LIGHT IN REACH,CONTINUE TO MONITOR.
[2018-10-13 05:00] VITALS: BP 106/68
--- NOTE | 2018-10-13 07:00 | NUR ---
SHIFT CHANGE REPORT, PT IN RECLINER SLEEPING, BREATHING EVEN AND NON-LABORED, NO SIGN DISCOMFORT, BODY ALARM IN PLACE AND CALL JARAMILLO IN REACH.
[2018-10-13 10:14] VITALS: BP 105/72
--- NOTE | 2018-10-13 12:00 | NUR ---
GROGGY, AWAKENED FOR MEAL AND ATE, NO DISPLAY OF ANXIETY OR RESTLESNESS, ALL NEEDS ADDRESSED, BODY ALARM IN PLACE.
--- NOTE | 2018-10-13 13:45 | NUR ---
Pt was OOB in chair, much more alert today. Sit to and from stand with min/mod assist. Pt requested urinal and BR use and had large loose stool, nursing aware. Pt ambulated 2 x 125' with CGA to mod assist of 1. Pt had poor safety skills and balance, retropulsive and inpulsive in acitivities. Pt was left in recliner with alarm on and callbell/tray in reach. PT ambulated with RW.
[2018-10-13 15:36] VITALS: BP 109/75
--- NOTE | 2018-10-13 16:53 | NUR ---
SLEEPING IN BED, APPEARS COMFORTABLE, BED ALARM ON.
[2018-10-13 19:20] VITALS: BP 132/64
--- NOTE | 2018-10-13 19:20 | NUR ---
REPORT FROM RUPERTO JEAN. PT RESTING IN BED WITH EYES CLOSED. WAKES EASILY. PT ALERT AND ORIENTED. DENIES ANY PAIN OR DISCOMFOT. NO DISTRESS NOTED. RESPIRATIONS EVEN AND UNLABORED. IV SITE APPEARS HEALTHY. BED ALARM FOR SAFETY. DISCUSSED POC. PT VERBALIZED UNDERSTANDING. CALL LIGHT WITHIN REACH. WILL CONTINUE TO MONITOR.
--- NOTE | 2018-10-14 00:44 | NUR ---
ASSISTED PT TO BATHROOM X1 PERSON ASSISTED AND WALKER. PT HAD LARGE BM. ASSISTED PT BACK TO BED. CALL LIGHT WITHIN REACH AND BED ALARM FOR SAFETY.
--- NOTE | 2018-10-14 03:45 | NUR ---
PT ASSISTED TO BATHROOM. AMBULATED TO BATHROOM X1 ASSIST AND WALKER. PT HAD LARGE BM AT THIS TIME. LINENS CHANGED. PT REPOSITIONED IN BED. CALL LIGHT WITHIN REACH AND BED ALARM ON FOR SAFETY. WILL CONTINUE TO MONITOR.
[2018-10-14 04:39] VITALS: BP 119/65
--- NOTE | 2018-10-14 07:00 | NUR ---
SHIFT CHANGE REPORT, PT AWAKE ALERT AND ORIENTED RESTING IN BED, NO C/O DISCOMFORT, CALM, HUMEROUS, ALL NEEDS ADDRESSED, CALL JARAMILLO IN REACH.
[2018-10-14 07:22] VITALS: BP 126/60
[2018-10-14 09:19] VITALS: BP 126/60
--- NOTE | 2018-10-14 11:52 | NUR ---
SITTING UP IN RECLINER HAVING MEAL, SPOUSE AT BEDSIDE, ALL NEEDS ADDRESSED.
--- NOTE | 2018-10-14 16:17 | NUR ---
Discharge instructions given. Patient verbalizes understanding of same. Discharged in good condition via Wheelchair to Home with spouse. All belongings sent with pt.
== END 2018-10-14 16:14 | DRG 312 ==
LOC: ED 16:20 → ED-I 18:33 → ED 18:51 → MS2 18:52
PROVIDERS: Family Medicine; ADMIT Internal Medicine; ATTEND Internal Medicine Nephrology
DX: I95.2 Hypotension due to drugs (principal); G92 Toxic encephalopathy; T38.0X5A Adverse effect of glucocorticoids and synthetic analogues, initial encounter; I10 Essential (primary) hypertension; I25.10 Atherosclerotic heart disease of native coronary artery without angina pectoris; K21.9 Gastro-esophageal reflux disease without esophagitis; F41.8 Other specified anxiety disorders; E78.5 Hyperlipidemia, unspecified; N40.0 Benign prostatic hyperplasia without lower urinary tract symptoms; J44.9 Chronic obstructive pulmonary disease, unspecified; I25.2 Old myocardial infarction; Z95.5 Presence of coronary angioplasty implant and graft
CPT/HCPCS: G0378

== ENCOUNTER 2021-10-18 10:22 | Emergency (ER) | payer MEDICARE, MEDICAID ==
[2021-10-18] VITALS (10 sets, daily range): BP systolic 100–122; BP diastolic 47–66
[~2021-10-18] VITALS: Ht 154.9 cm; Wt 68.9 kg
[~2021-10-18 10:22] MED LIST changes: +AMLODIPINE5 MG PO; +FUROSEMIDE20 MG PO; +OMEPRAZOLE10 MG PO; +POT CHLORIDE10 ME5 PO; +PRIMIDONE50 MG PO; +TAMSULOSIN HCL0.4 MG PO
[2021-10-18 11:29] LABS: HEMATOCRIT 36.7 % (39.0-50.0); IMMATURE GRANULOCYTES 0.9 % (0.0-5.0); MEAN CELL VOLUME 94.8 fL CALC (80.0-100.0); MEAN CORPUSCULAR HGB CONC 32.7 g/dL CAL (32.0-36.0); NEUT# 5.33 thou/uL (1.82-7.42); RED BLOOD COUNT 3.87 mill/uL (4.70-6.10)
[2021-10-18 11:50] LABS: ALBUMIN 3.4 g/dL (3.2-5.0); ALKALINE PHOSPHATASE 44 u/l (38-126); ANION GAP 8 (6-22 (CALC)); BILIRUBIN, TOTAL 0.5 mg/dL (0.0-1.4); BUN 28 mg/dL (8-23); BUN/CREATININE RATIO 17 (12-20 (CALC)); CARBON DIOXIDE 27 mmol/l (22-30); CHLORIDE 109 mmol/l (95-108); CREATININE 1.6 mg/dL (0.7-1.3); ETHYL ALCOHOL 0 mg/dl (0-30); GFR FOR AFR.AMER. 51 ML/MIN (>=60 (CALC)); GFR OTHER RACES 42 ML/MIN (>=60 (CALC)); POTASSIUM 3.9 mmol/l (3.5-5.1); SGOT/AST 16 u/l (19-48); SODIUM 140 mmol/l (137-146); TOTAL PROTEIN 5.6 g/dL (6.3-8.2)
[2021-10-18 11:59] LABS: MYOGLOBIN 236 ng/mL (0 - 121)
== END 2021-10-18 16:16 | disposition home or self-care (01) ==
LOC: ED 10:22
PROVIDERS: Emergency Medicine
DX: E86.0 Dehydration (principal); K21.9 Gastro-esophageal reflux disease without esophagitis; I25.2 Old myocardial infarction; Z95.5 Presence of coronary angioplasty implant and graft

== ENCOUNTER 2022-12-19 17:22 | Observation (INO) | payer MEDICARE, MEDICAID ==
[2022-12-19] VITALS (8 sets, daily range): BP systolic 108–137; BP diastolic 55–83
[~2022-12-19] VITALS: Ht 154.9 cm; Wt 65.2 kg
[2022-12-19 18:23] LABS: BASO% 0.2 % (0-3); EOS% 2.7 % (0-8); HEMATOCRIT 35.7 % (39.0-50.0); HEMOGLOBIN 11.7 g/dl (14.0-18.0); IMMATURE GRANULOCYTES 0.4 % (0.0-5.0); LYMPH% 27.8 % (15-41); MEAN CORPUSCULAR HGB 30.5 pG CALC (26.0-32.0); MEAN CORPUSCULAR HGB CONC 32.8 g/dL CAL (32.0-36.0); MONO% 16.5 % (2-13); NEUT# 2.93 thou/uL (1.82-7.42); NEUT% 52.4 % (42-76); RED BLOOD COUNT 3.84 mill/uL (4.70-6.10); RED CELL DISTRI WIDTH 13.1 % (11.5-15.5)
[2022-12-19 18:37] LABS: ALKALINE PHOSPHATASE 42 u/l (38-126); BILIRUBIN, TOTAL 0.6 mg/dL (0.2-1.3); BUN 22 mg/dL (8-23); BUN/CREATININE RATIO 14 (12-20 (CALC)); CHLORIDE 111 mmol/l (95-108); CREATININE 1.6 mg/dL (0.7-1.3); GFR FOR AFR.AMER. 51 ML/MIN (>=60 (CALC)); GFR OTHER RACES 42 ML/MIN (>=60 (CALC)); POTASSIUM 3.1 mmol/l (3.5-5.1); SGOT/AST 21 u/l (19-48); SODIUM 140 mmol/l (137-146); TOTAL PROTEIN 4.9 g/dL (6.3-8.2)
[2022-12-19 18:43] LABS: ALBUMIN 2.8 g/dL (3.2-5.0); ANION GAP 10 (6-22 (CALC)); CARBON DIOXIDE 22 mmol/l (22-30)
[2022-12-20 04:39] VITALS: BP 119/64
[2022-12-20 07:32] VITALS: BP 136/70
[2022-12-20 11:25] VITALS: BP 135/61
[2022-12-20 15:09] VITALS: BP 114/58
[2022-12-20 15:10] VITALS: BP 114/58
[2022-12-20 16:53] LABS: URINE BLOOD DIPSTICK Negative (NEGATIVE); URINE GLUCOSE - DIPSTICK Negative (NEGATIVE); URINE KETONE Negative (NEGATIVE); URINE LEUK ESTERASE Negative (NEGATIVE); URINE NITRITE - DIPSTICK Negative (Negative); URINE PH 5.5 (4.5-8.0); URINE PROTEIN - DIPSTICK 30 mg/dL (NEG-TRACE); URINE SPECIFIC GRAVITY >=1.030; URINE UROBILINOGEN - DIPSTICK 0.2 E.U./dL (0.2)
[2022-12-20 16:55] LABS: URINE COLOR Yellow
[2022-12-20 16:56] LABS: URINE RBC 0-2 RBC/hpf (0-5); URINE WBC 0-2 WBC/hpf (0-5)
[2022-12-20 19:06] VITALS: BP 135/57
[2022-12-21] VITALS (7 sets, daily range): BP systolic 107–154; BP diastolic 64–71
[2022-12-21 06:48] LABS: BASO% 0.2 % (0-3); EOS% 2.7 % (0-8); IMMATURE GRANULOCYTES 0.4 % (0.0-5.0); LYMPH% 26.8 % (15-41); MEAN CELL VOLUME 92.3 fL CALC (80.0-100.0); MEAN CORPUSCULAR HGB 30.8 pG CALC (26.0-32.0); MEAN CORPUSCULAR HGB CONC 33.3 g/dL CAL (32.0-36.0); MONO% 11.7 % (2-13); NEUT# 2.85 thou/uL (1.82-7.42); NEUT% 58.2 % (42-76); RED BLOOD COUNT 3.9 mill/uL (4.70-6.10)
[2022-12-21 07:12] LABS: ALBUMIN 2.8 g/dL (3.2-5.0); BILIRUBIN, TOTAL 0.5 mg/dL (0.2-1.3); CREATININE 1.5 mg/dL (0.7-1.3); MAGNESIUM 1.8 mg/dL (1.6-2.3); POTASSIUM 3.5 mmol/l (3.5-5.1); TOTAL PROTEIN 4.8 g/dL (6.3-8.2)
[2022-12-22 00:18] VITALS: BP 133/55
[2022-12-22 03:48] VITALS: BP 126/61
[2022-12-22 07:31] VITALS: BP 153/65
[2022-12-22 08:23] LABS: BASO% 0.2 % (0-3); EOS% 2.1 % (0-8); HEMATOCRIT 35.5 % (39.0-50.0); HEMOGLOBIN 11.9 g/dl (14.0-18.0); IMMATURE GRANULOCYTES 0.5 % (0.0-5.0); LYMPH% 20.2 % (15-41); MEAN CELL VOLUME 91.7 fL CALC (80.0-100.0); MEAN CORPUSCULAR HGB 30.7 pG CALC (26.0-32.0); MEAN CORPUSCULAR HGB CONC 33.5 g/dL CAL (32.0-36.0); MONO% 8.3 % (2-13); NEUT# 4.34 thou/uL (1.82-7.42); NEUT% 68.7 % (42-76); RED BLOOD COUNT 3.87 mill/uL (4.70-6.10); RED CELL DISTRI WIDTH 12.7 % (11.5-15.5)
[2022-12-22 08:35] LABS: ALBUMIN 2.7 g/dL (3.2-5.0); ALKALINE PHOSPHATASE 56 u/l (38-126); ANION GAP 9 (6-22 (CALC)); BILIRUBIN, TOTAL 0.6 mg/dL (0.2-1.3); BUN 12 mg/dL (8-23); BUN/CREATININE RATIO 11 (12-20 (CALC)); CARBON DIOXIDE 23 mmol/l (22-30); CHLORIDE 110 mmol/l (95-108); GFR FOR AFR.AMER. > 60 ML/MIN (>=60 (CALC)); GFR OTHER RACES > 60 ML/MIN (>=60 (CALC)); MAGNESIUM 1.6 mg/dL (1.6-2.3); POTASSIUM 3.4 mmol/l (3.5-5.1); SGOT/AST 15 u/l (19-48); SODIUM 139 mmol/l (137-146); TOTAL PROTEIN 4.7 g/dL (6.3-8.2)
[2022-12-22 11:17] VITALS: BP 149/65
[2022-12-22 16:04] VITALS: BP 145/57
[2022-12-22 19:19] VITALS: BP 130/65
[2022-12-23] VITALS (7 sets, daily range): BP systolic 145–214; BP diastolic 65–86
[2022-12-24] VITALS (13 sets, daily range): BP systolic 98–163; BP diastolic 42–76
[2022-12-24 05:42] LABS: ALKALINE PHOSPHATASE 56 u/l (38-126); BILIRUBIN, TOTAL 0.6 mg/dL (0.2-1.3); BUN 13 mg/dL (8-23); BUN/CREATININE RATIO 12 (12-20 (CALC)); CHLORIDE 100 mmol/l (95-108); CREATININE 1.1 mg/dL (0.7-1.3); GFR FOR AFR.AMER. > 60 ML/MIN (>=60 (CALC)); GFR OTHER RACES > 60 ML/MIN (>=60 (CALC)); POTASSIUM 3.2 mmol/l (3.5-5.1); SGOT/AST 19 u/l (19-48); TOTAL PROTEIN 5.2 g/dL (6.3-8.2)
[2022-12-24 05:45] LABS: ANION GAP 7 (6-22 (CALC)); CARBON DIOXIDE 28 mmol/l (22-30); SODIUM 132 mmol/l (137-146)
[2022-12-25] VITALS (8 sets, daily range): BP systolic 111–142; BP diastolic 49–85
[2022-12-26 03:14] VITALS: BP 122/69
[2022-12-26 06:41] VITALS: BP 120/69
[2022-12-26 15:54] VITALS: BP 118/66
[2022-12-26 19:29] VITALS: BP 140/77
[2022-12-27 04:13] VITALS: BP 146/68
[2022-12-27 05:43] LABS: HEMATOCRIT 36.9 % (39.0-50.0); HEMOGLOBIN 12.6 g/dl (14.0-18.0); MEAN CELL VOLUME 90.4 fL CALC (80.0-100.0); MEAN CORPUSCULAR HGB 30.9 pG CALC (26.0-32.0); MEAN CORPUSCULAR HGB CONC 34.1 g/dL CAL (32.0-36.0); RED BLOOD COUNT 4.08 mill/uL (4.70-6.10); RED CELL DISTRI WIDTH 12.6 % (11.5-15.5)
[2022-12-27 05:53] LABS: BUN 17 mg/dL (8-23); BUN/CREATININE RATIO 14 (12-20 (CALC)); CARBON DIOXIDE 32 mmol/l (22-30); CHLORIDE 98 mmol/l (95-108); CREATININE 1.2 mg/dL (0.7-1.3); GFR FOR AFR.AMER. > 60 ML/MIN (>=60 (CALC)); GFR OTHER RACES 59 ML/MIN (>=60 (CALC)); SODIUM 134 mmol/l (137-146)
[2022-12-27 06:00] LABS: ANION GAP 8 (6-22 (CALC)); POTASSIUM 3.9 mmol/l (3.5-5.1)
[2022-12-27 06:15] VITALS: BP 175/82
[2022-12-27 08:26] VITALS: BP 129/55
[2022-12-27] MEDS ORDERED: AMLODIPINE BESYL5 MG PO (09:04)
== END 2022-12-27 12:25 ==
LOC: ED 17:22 → ED-I 19:54 → ED 20:09 → MS2 20:10
PROVIDERS: Emergency Medicine; Nurse Practitioner Family; Student in an Organized Health Care Education/Training Program; ADMIT Student in an Organized Health Care Education/Training Program; ATTEND Student in an Organized Health Care Education/Training Program
DX: I95.2 Hypotension due to drugs (principal); E87.6 Hypokalemia; R00.1 Bradycardia, unspecified; T44.7X5A Adverse effect of beta-adrenoreceptor antagonists, initial encounter; E86.0 Dehydration; N17.9 Acute kidney failure, unspecified; I10 Essential (primary) hypertension; I25.10 Atherosclerotic heart disease of native coronary artery without angina pectoris; J44.9 Chronic obstructive pulmonary disease, unspecified; N40.1 Benign prostatic hyperplasia with lower urinary tract symptoms; R33.8 Other retention of urine; K21.9 Gastro-esophageal reflux disease without esophagitis; F32.A Depression, unspecified; F41.9 Anxiety disorder, unspecified; I25.2 Old myocardial infarction; Z95.5 Presence of coronary angioplasty implant and graft; Z91.81 History of falling; Z20.822 Contact with and (suspected) exposure to COVID-19
CPT/HCPCS: J1650